=== PATIENT | female | born 1990 | race Native Hawaiian/Other Pacific Islander ===

== ENCOUNTER 2017-06-29 15:24 | Emergency (ER) | payer OTHER ==
[2017-06-29 15:29] VITALS: RESP 16; O2SAT 100
[2017-06-29 16:25] LABS: BASO % 0.6 % (0.0-2.0); EOS % 0.4 % (0.0-4.0); HEMATOCRIT 39.9 % (34.0-47.0); LYMPH # 0.9 K/uL (1.0-4.3); LYMPH % 13.5 % (20.0-40.0); MEAN CELL VOLUME 88.5 fl (81.0-99.0); MEAN CORPUSCULAR HEMOGLOBIN 28.7 pg (27.0-31.0); MEAN CORPUSCULAR HGB CONC 32.5 g/dL (33.0-37.0); MEAN PLATELET VOLUME 8.7 fl (7.2-11.7); MONO # 0.4 K/uL (0.0-0.8); NEUT # 5.5 K/uL (1.8-7.0); NEUT % 79.5 % (50.0-75.0); RED CELL DISTRIBUTION WIDTH 12.3 % (11.5-14.5); WHITE BLOOD COUNT 6.9 K/uL (4.8-10.8)
[2017-06-29 16:35] LABS: ALB/GLOB RATIO 1.4 (1.0-2.1); ALKALINE PHOSPHATASE 72 U/L (38-126); ALT/SGPT 23 U/L (9-52); AST/SGOT 21 U/L (14-36); BILIRUBIN,TOTAL 0.5 mg/dl (0.2-1.3); BLOOD UREA NITROGEN 6 mg/dl (7-17); CALCIUM 9.8 mg/dL (8.4-10.2); CARBON DIOXIDE 24 mmol/L (22-30); CHLORIDE 104 mmol/L (98-107); GFR AFRICAN-AMERICAN > 60; GLUCOSE,RANDOM 109 mg/dL (65-105); PARTIAL THROMBOPLASTIN TIME 33.3 Seconds (25.6-37.1); POTASSIUM 3.9 MMOL/L (3.6-5.0); SODIUM 144 mmol/l (132-148); TOTAL PROTEIN 8.3 G/DL (6.3-8.2)
--- NOTE | 2017-06-29 16:36 | RAD ---
HISTORY: palpitations COMPARISON: No prior. TECHNIQUE: Chest PA and lateral FINDINGS: LUNGS: No active pulmonary disease. PLEURA: No significant pleural effusion identified. No pneumothorax apparent. CARDIOVASCULAR: Normal. OSSEOUS STRUCTURES: No significant abnormalities. VISUALIZED UPPER ABDOMEN: Normal. OTHER FINDINGS: None. IMPRESSION: No active disease. No preliminary report provided by emergency department personnel.
--- NOTE | 2017-06-29 17:33 | ED PDOC ---
HPI: Chest Pain Time Seen by Provider: 06/29/17 15:40 Chief Complaint (Nursing): Palpitations Chief Complaint (Provider): Palpitations History Per: Patient History/Exam Limitations: no limitations Onset/Duration Of Symptoms: Days (1) Current Symptoms Are (Timing): Intermittent Episodes Quality: Other (heart racing) Modifying Factors: None Exacerbating Factors: None Additional Complaint(s): Patient is a 27 y/o female with no significant past medical history presenting to the emergency department for intermittent palpitations ongoing since noon today with associated mild dizziness. In describing the palpitations, she reports that it feels like her heart is racing. Also notes that she is under the work up of Dr. Caldwell, a sales service representative, who diagnosed her with asymptomatic tachycardia and placed her on metoprolol two weeks ago. However, patient stopped taking the medication over the weekend due to experiencing chest discomfort along with some side effects (dizziness/presyncope). She is also due to receive an echocardiogram today but came to the ER due to worsening symptoms. Denies current chest pain, shortness of breath, blood in stool, fever , fatigue, heavy periods, any surgical history, or other complaints. Of note patient thinks that her PCP ran a thyroid panel for which she needed a T4 repeated. PCP: Dr. [place] Hanking Machine Operator: Dr. Caldwell Past Medical History Reviewed: Historical Data, Nursing Documentation, Vital Signs Vital Signs: Last Vital Signs Temp 98.6 F 06/29/17 15:26 Pulse 117 H 06/29/17 15:26 Resp 16 06/29/17 15:26 BP 137/74 06/29/17 15:26 Pulse Ox 100 06/29/17 17:50 - Medical History PMH: No Chronic Diseases - Surgical History Surgical History: No Surg Hx - Family History Family History: States: Unknown Family Hx - Social History Current smoker - smoking cessation education provided: No Ex-Smoker (has not smoked in the last 12 months): Yes Alcohol: None Drugs: Denies - Home Medications Home Medications: Ambulatory Orders Medication Instructions Recorded Verapamil [Calan Tab] 80 mg PO DAILY #14 tab 06/29/17 - Allergies Allergies/Adverse Reactions: Allergies Allergy/AdvReac Type Severity Reaction Status Date / Time No Known Allergies Allergy Verified 06/29/17 15:26 Review of Systems ROS Statement: Except As Marked, All Systems Reviewed And Found Negative Constitutional: Negative for: Fever, Other (fatigue) Cardiovascular: Positive for: Palpitations (intermittent). Negative for: Chest Pain Respiratory: Negative for: Shortness of Breath Genitourinary Female: Negative for: Other (heavy periods) Neurological: Positive for: Dizziness (mild) Physical Exam - Reviewed Nursing Documentation Reviewed: Yes Vital Signs Reviewed: Yes - Physical Exam Appears: Positive for: Well, Non-toxic, No Acute Distress Head Exam: Positive for: ATRAUMATIC, NORMAL INSPECTION, NORMOCEPHALIC Skin: Positive for: Normal Color, Warm, Dry Eye Exam: Positive for: Normal appearance, EOMI, PERRL Neck: Positive for: Normal, Painless ROM, Supple Cardiovascular/Chest: Positive for: Tachycardia. Negative for: Murmur Respiratory: Positive for: Normal Breath Sounds. Negative for: Accessory Muscle Use, Respiratory Distress Gastrointestinal/Abdominal: Positive for: Normal Exam, Soft. Negative for: Tenderness Extremity: Positive for: Normal ROM. Negative for: Pedal Edema Neurologic/Psych: Positive for: Alert, Oriented (x3) - Laboratory Results Result Diagrams: 06/29/17 16:15 06/29/17 16:15 - ECG O2 Sat by Pulse Oximetry: 100 (RA) Pulse Ox Interpretation: Normal Medical Decision Making Medical Decision Making: Time: 17:14 Initial impression: Palpitations Initial plan: EKG Thyroid panel Labs D-Dimer test ED Urine Dipstick ED Urine Reevaluation 17:20 Blood work results are unremarkable. D-dimer within normal limits. Will contact Dr. Caldwell for the next steps. 17:21 Chest X-Ray reviewed. Findings noted as follows: LUNGS: No active pulmonary disease. PLEURA: No significant pleural effusion identified. No pneumothorax apparent. CARDIOVASCULAR: Normal. OSSEOUS STRUCTURES: No significant abnormalities. VISUALIZED UPPER ABDOMEN: Normal. OTHER FINDINGS: None. IMPRESSION: No active disease. labs reviewed no clinically significant findings. trace elev T4 Dr Caldwell cardio contacted and he saw patient in ED, he recommended verapamil 80mg (half tab thus 40mg) daily- Rx provided, he will see her as outpatient for holter tomorrow. Scribe Attestation: Documented by Chelo Walsh, acting as a scribe for Serg Hutchins DO. Provider Scribe Attestation: All medical record entries made by the Scribe were at my direction and personally dictated by me. I have reviewed the chart and agree that the record accurately reflects my personal performance of the history, physical exam, medical decision making, and the department course for this patient. I have also personally directed, reviewed, and agree with the discharge instructions and disposition. Disposition - Clinical Impression Clinical Impression: Palpitations - Patient ED Disposition Is Patient to be Admitted: No Counseled Patient/Family Regarding: Studies Performed, Diagnosis, Need For Followup - Disposition Referrals: Ledy Caldwell MD [Staff Provider] - Disposition: Routine/Home Disposition Time: 19:10 Condition: STABLE Additional Instructions: Return to ER for any worse or new symptoms. Start verapamil 80mg (use half tab thus 40mg) once a day. See Dr Caldwell for further testing. Prescriptions: Verapamil [Calan Tab] 80 mg PO DAILY #14 tab Instructions: Palpitations (ED), Near Syncope (ED) Forms: [facility] (B[place]ian)
[2017-06-29 17:52] LABS: T4 12.7 ug/dl (5.5-11.0)
[2017-06-29 18:06] LABS: THYROID STIMULATING HORMONE 1.31 mIU/ML (0.46-4.68)
[2017-06-29 20:10] VITALS: BP 122/77; PULSE 82; TEMP 98.1
--- NOTE | 2017-06-30 10:45 | CARD ---
APPROVED REPORT EKG Measurement Heart [id number] <Conclusion> Sinus rhythm with marked sinus arrhythmia Otherwise normal ECG
== END 2017-06-29 19:46 | disposition home or self-care (01) ==
LOC: H.ER 15:24
DX: R00.2 Palpitations (principal)